=== PATIENT | male | born 1960 | race Caucasian/White ===

== ENCOUNTER 2020-12-25 10:49 | Observation (INO) | payer MEDICARE ==
[~2020-12-25] VITALS: Ht 180.3 cm; Wt 80.3 kg
--- NOTE | ~2020-12-25 | HEMODYNAMI ---
PATIENT:PACHECO MARADIAGA MEDICAL RECORD: [id number] : 62 LOCATION:[facility] D.2123 ADMISSION DATE: 12/25/20 Generatedon::43 Patient name: PACHECO MARADIAGA Patient #: [id number] SSN: [id number] : 1960 Date of study: 12/26/2020 Page: Of Hemodynamic Procedure Report Patient Data Patient Demographics Procedure consent was obtained First Name: PACHECO Gender: Male Last Name: ASHWINI : 1960 Patient #: [id number] Age: 60 year(s) Race: SSN: [id number] Additional ID: [id number] Contact details Address: [place] [address] State: [place] City: [place] Zip code: [address] Admission Admission Data Admission Date: 12/25/2020 Admission Time: 13:57 Arrival Date: 12/26/2020 Arrival Time: 0:00 Admit Source: Other Insurance Payor: Medicare Room #: D.2123 Height (in.): 70.87 BSA: 2 (m2) Height (cm.): 180 BMI: 24.69 (kg/m2) Weight (lbs.): 176.37 Weight (kg.): 80 Lab Results Lab Result Date: 12/26/2020 Lab Result Time: 0:00 Biochemistry Name Units Result Min Max BUN mg/dl 17 --(---*)-- 7 18 CK-MB ng/ml 0.8 --(*---)-- 0 3.6 Creatinine mg/dl 1.3 --(---*)-- 0.6 1.3 eGFR ml/min 60 *-(----)-- 90 120 NONAFRICAN Troponin l ng/ml 0.017 --(-*--)-- 0 0.06 CBC Name Units Result Min Max Hematocrit % 45.7 --(-*--)-- 42 54 Hemoglobin g/dl 15.9 --(--*-)-- 13.5 17.5 Procedure Procedure Types Cath Procedure Diagnostic Procedure C [facility] w/Coronaries Procedure Description Procedure Date Procedure Date: 12/26/2020 Procedure Start Time: 9:31 Procedure End Time: 9:39 Procedure Staff Name Function Rios Henry MD Performing Physician Maribeth Hammonds RT Monitor Tiffani Zhou RT Scrub Chaparro Merrill RN Nurse Procedure Data Cath Procedure Fluoroscopy Diagnostic fluoroscopy Total fluoroscopy Time: 1.2 time: 1.2 min min Diagnostic fluoroscopy Total fluoroscopy dose: 374 dose: 374 mGy mGy Contrast Material Contrast Material Type Amount (ml) Isovue 300 57 Entry Location Entry Primary Successful Side Size Upsize Upsize Entry Closure Shaver ccessful Closure Location (Fr) 1 (Fr) 2 (Fr) Remarks Device Remarks Radial Right 6 Fr Mechanical artery Short Compression Estimated blood loss: 5 ml Diagnostic catheters Device Type Used For End Catheter Placement DIAGNOSTIC Sebree 110cm 5 Multi-vessel Fr catheter ([id number]) Angiography Procedure Complications No complications Procedure Medications Medication Administration Route Dosage Oxygen etCO2 Nasal cannula 2 l/min Lidocaine 2% added to field 20 Heparin Flush Bag added to field 2 bags (1000units/500ml NS) 0.9% NaCl I.V. 100 ml/hr Radial Cocktail I.A. 1 syringe (Verapamil 2mg/Nitro 400mcg/Heparin 1500units) Hemodynamics Rest BSA: 2 (m2) HGB: 15.9 (g/dl) O2 Consumption: Estimated: 230.72 (ml/min) O2 Consu mption indexed: Estimated:115.36 (ml/min/m) Heart Rate: 64 (bpm) Pressure Samples Time Site Value (mmHg) Purpose Heart Use Rate(bpm) 9:35 LV 107/-1,2 Snapshot 70 Gradients Valve Time Site Site Mean SEP/DFP Peak To Heart Use 1 2 (mmHg) (sec/min) Peak Rate (mmHg) (bpm) Aortic 9:36 LV AO 83 Snapshots Pre Cath Intra NCS Post Cath Vital Signs Time Heart Resp SPO2 etCO2 NIBP (mmHg) Rhythm Pain Sedation Rate (ipm) (%) (mmHg) Status Level (bpm) 9:25:21 65 20 97 29.9 165/101(142) NSR 0 (11) 10(A) , No pain 9:29:42 66 21 97 31.4 164/97(128) NSR 0 (11) 10(A) , No pain 9:34:03 66 24 97 26.9 153/95(127) NSR 0 (11) 10(A) , No pain 9:38:19 76 24 94 23.2 126/85(100) NSR 0 (11) 10(A) , No pain Medications Time Medication Route Dose Verified Delivered Reason Notes Effectiveness by by 9:23:26 Oxygen etCO2 2 l/min Rios [place] used for Nasal [facility] Merrill RN procedure cannula 9:23:33 Lidocaine 2% added 20ml Rios [place] for local to vial [facility] anesthetic field MD CR[facility]ALL 9:23:38 Heparin Flush added 2 bags Rios [place] used for Bag to [facility] procedure (1000units/500ml field MD CRANDALL NS) 9:23:46 0.9% NaCl I.V. 100 Rios [place]field Per ml/hr [facility] Merrill RN physician 9:34:55 Radial Cocktail I.A. 1 Rios [place] for (Verapamil syringe [facility] vasodilation 2mg/Nitro MD CRANDALL 400mcg/Heparin 1500units) Procedure Log Time Note 8:42:54 Informed consent obtained and on chart 8:42:59 Diagnostic Cath Status : Urgent 8:44:05 Lab Result : BUN 17 mg/dl 8:44:05 Lab Result : eGFR NONAFRICAN 60 ml/min 8:44:05 Lab Result : Hemoglobin 15.9 g/dl 8:44:05 Lab Result : Troponin l 0.017 ng/ml 8:44:05 Lab Result : Creatinine 1.3 mg/dl 8:44:05 Lab Result : CK-MB 0.8 ng/ml 8:44:06 Lab Result : Hematocrit 45.7 % 8:44:44 Arrival Date: 12/26/2020 12:00:00 AM 8:44:47 Admit Source: Other 8:44:49 ACC Patient presents with Unstable Angina CCS Anginal Class 2--Slight limitation of ordinary activity. 8:44:52 Procedure Status Urgent Heart Cath (IP). 8:44:54 Time tracking: Regular hours (M-F 7:00 - 5:00) 8:45:00 Plan of Care:Hemodynamics will remain stable., Cardiac rhythm will remain stable., Comfort level will be maintained., Respiratory function will remain adequate., Patient/ family verbilizes understanding of procedure., Procedure tolerated without complication., Recovers from procedure without complications.. 8:51:16 Chaparro Merrill RN sent for patient. Start room use. 8:52:40 Patient Height : 70.87 inches 8:52:44 Patient Weight : 176.37 lbs 8:52:53 Insurance Payor : Medicare 9:07:32 2) 60-89 Mildly reduced kidney function, and other findings (as for stage 1) point to kidney disease. 9:07:36 Maximum allowable contrast dose (3.7 X eGFR X 0.75)167 ml. 9:09:08 Patient received from Med II to CCL 1 Alert and oriented. Tansferred to table in Supine position. 9:09:15 Warm blankets applied, and sanjiv hugger turned on for patient comfort. 9:09:16 Correct patient and procedure confirmed by team. 9:09:17 ECG and BP/O2 sat monitors applied to patient. 9:23:02 Vital chart was started 9:23:26 Oxygen 2 l/min etCO2 Nasal cannula was administered by Chaparro Merrill RN; used for procedure; Verbal order read back and verified. 9:23:33 Lidocaine 2% 20ml vial added to field was administered by iRos Henry MD; for local anesthetic; Verbal order read back and verified. 9:23:38 Heparin Flush Bag (1000units/500ml NS) 2 bags added to field was administered by Rios Henry MD; used for procedure; Verbal order read back and verified. 9:23:46 0.9% NaCl 100 ml/hr I.V. was administered by Chaparro Merrill RN; Per physician; Verbal order read back and verified. 9:24:13 Baseline sample Acquired. 9:24:17 Rhythm: sinus rhythm 9:24:20 Full Disclosure recording started 9:24:25 H&P Date Dictated: 12/26/2020 New H&P dictated by physician.. 9:24:27 Pre-procedure instructions explained to patient. 9:24:27 Pre-op teaching completed and patient verbalized understanding. 9:24:31 Family in patients room. 9:24:32 Patient NPO since Midnight. 9:24:35 Is the patient allergic to Iodine/contrast media? No. 9:24:36 Was the patient premedicated? Yes 9:24:37 Is patient on blood thinner?No 9:24:39 Patient diabetic? No. 9:24:43 Not using any sedation on pt, pt states that he has gone into cardiac arrest each time sedation medication has been given to him. 9:24:56 Previous problem with sedation/anesthesia? Yes cardiac arrest under general anesthesia 9:25:00 Snore? Yes 9:25:02 Sleep apnea? No 9:25:02 Deviated septum? No 9:25:03 Opens mouth fully? Yes 9:25:04 Sticks out tongue? Yes 9:25:11 Airway obstruction? Yes copd, asthma 9:25:16 Dentures? No ? 9:25:20 Pre procedure: right dorsailis pedis pulse 2+ Normal; easily identifiable; not easily obliterated 9:25:23 Pre procedure: left dorsailis pedis pulse 2+ Normal; easily identifiable; not easily obliterated 9:25:26 Modified Oumsane's test Radial < 7 seconds 9:25:28 Patient pain scale 0/10 ?. 9:25:35 IV patent on arrival in left forearm with 0.9% NaCl at O. 9:25:40 Lab results completed and on chart. 9:25:53 Right Radial & Right Groin area was prepped with chlora-prep and draped in sterile fashion 9:25:54 Alarms reviewed by R. N. 9:25:55 Sharps counted by scrub and verified by R.N. 9:25:58 Physician arrived 9:25:59 --------ALL STOP TIME OUT------ 9:26:00 Final Timeout: patient, procedure, and site verified with staff and physician. All members of the team are in agreement. 9:26:02 Right Radial & Right Groin site verified by team. 9:26:06 Fire Safety Assessment: A--An alcohol-based skin anteseptic being used preoperatively., C--Open oxygen or nitrous oxide is being used., D--An ESU, laser, or fiber-optic light is being used. 9:26:08 Physical assessment completed. ASA score P 2 - A patient with mild systemic disease as per Rios Henry MD. 9:26:16 Use device set Radial Dx or PCI 9:26:17 ACIST Syringe (58387) opened to sterile field. 9:26:17 Medline Cath Pack ([id number]) opened to sterile field. 9:26:17 Bag Decanter () opened to sterile field. 9:26:18 ACIST Hand Control (76965) opened to sterile field. 9:26:18 ACIST Manifold (50131) opened to sterile field. 9:26:19 Tegaderm 4 x 4 (1626W) opened to sterile field. 9:26:19 MBrace Wrist Support ([id number]) opened to sterile field. 9:26:20 NEEDLE Cook 21G 4cm Radial (F76365) opened to sterile field. 9:26:21 SHEATH 6FR RAIN (8497659) opened to sterile field. 9:26:22 EMERALD Guide Wire (891-788) opened to sterile field. 9:30:14 Procedure started. 9:31:47 Local anesthetic to right radial artery with Lidocaine 2% by Rios Henry MD.INITIAL ACCESS ONLY 9:32:53 A 6 Fr Short sheath was inserted into the Right Radial artery 9:34:35 Zero performed for pressure channel P1 9:34:43 Zero performed for pressure channel P1 9:34:50 Zero performed for pressure channel P1 9:34:55 Radial Cocktail (Verapamil 2mg/Nitro 400mcg/Heparin 1500units) 1 syringe I.A. was administered by Rios Henry MD; for vasodilation; Verbal order read back and verified. 9:35:04 A DIAGNOSTIC Sebree 110cm 5 Fr catheter (765908) was advanced over the wire and used for Multi-vessel Angiography. 9:35:44 LV hemodynamics recorded. 9:35:45 LV gram done using MO 9:35:47 Injector settings: Ml/sec: 5, Volume: 15, 9:35:58 EF : 55 % 9:36:02 LCA angiography performed. 9:36:04 Injector settings: Ml/sec: 3, Volume: 6, 9:37:39 RCA angiography performed. 9:37:42 Injector settings: Ml/sec: 3, Volume: 6, 9:38:04 Catheter removed. 9:38:08 ZEPHYR REGULAR TR BAND (945166) opened to sterile field. 9:38:17 Sheath removed intact; hemostasis achieved with Mechanical Compression to the Right Radial artery. 9:38:19 Procedure ended.(Physican Out) 9:38:30 Fluoroscopy time 01.20 minutes. 9:38:34 Fluoroscopy dose: 374 mGy 9:38:34 Flurop Dose total: 374 9:38:39 Dose Area Product 15365 mGy/cm. 9:39:03 Contrast amount:Isovue 300 57ml. 9:39:05 Maximum allowable dose exceeded? No. 9:39:06 Sharps counted by scrub and verified by R.N. 9:39:08 [place] band inflated with 12cc of air. 9:39:10 Insertion/operative site no bleeding no hematoma. 9:39:15 Post right radial artery:stable 9:39:17 Post Procedure Pulses reassessed and unchanged 9:39:20 Post procedure rhythm: unchanged. 9:39:23 Estimated blood loss: 5 ml 9:39:25 Post procedure instruction explained to patient.Patient verbalizes understanding. 9:39:25 Patient needs reinforcement of post procedure teaching. 9:39:35 Procedure and supply charges have been captured, reviewed, submitted and are correct. 9:39:40 Procedure Complication : No complications 9:39:42 Vital chart was stopped 9:39:44 [facility] Findings: mild to moderate CAD (<70%) 9:39:45 Operative report dictated upon procedure completion. 9:39:45 See physician's report for complete and final results. 9:39:47 Report given to [facility]. 9:39:50 Patient transfered to [facility] with Stretcher. 9:39:53 Procedure ended. 9:39:53 Full Disclosure recording stopped 9:39:58 End room use (Document Last) Device Usage Item Name Manufacture Quantity Catalog Hospital Part Current Minima l Lot# / Number Charge Number Stock Stock Serial# Code ACIST Acist 1 34142 198340 646668 [id number] 20 Syringe Medical (89132) Systems Inc Medline Medline 1 [id number] 630629 17727 115715 5 Cath Pack ([id number]) Bag Microtek 1 184831 30974 120079 5 Decanter Medical Inc. () ACIST Hand Acist 1 40401 837562 664609 565279 5 Control Medical (25669) Systems Inc ACIST Acist 1 96927 476530 347839 313444 5 Manifold Medical (11659) Systems Inc Tegaderm 4 3M 1 1626W 349158 568805 154605 5 x 4 (1626W) MBrace Advanced 1 140-0250-00 496693 23912 890256 5 Wrist Vascular Support Dynamics ([id number]) NEEDLE Cook Cook Medical 1 [id number] 853388 900232 643059 5 21G 4cm Radial (F21063) SHEATH 6FR Cardinal 1 7756920 267279 7781304 224084 5 [facility] Health (6215395) EMERALD Cardinal 1 638-860 021038 135989 887113 5 Guide Wire Health (980-066) DIAGNOSTIC Terumo 1 36-4358 432736 690894 256781 5 Sebree 110cm 5 Fr catheter (383370) ZEPHYR Cardinal 1 300163 467198 0027377 445758 5 REGULAR TR Health BAND (996139) Signature Audit Jasper Stage Time Signature Unsigned Intra-Procedure 12/26/2020 Maribeth Hammonds 9:42:59 AM RT(R) Intra-Procedure 12/26/2020 Chaparro Merrill RN 9:43:17 AM Intra-Procedure 12/26/2020 Rios De Paz 9:43:30 AM Alphonse CR[facility] [address] [place] [address]
--- NOTE | ~2020-12-25 | OP ---
PATIENT NAME: PACHECO MARADIAGA MEDICAL RECORD: [id number] :62 LOCATION:D. D.3 ADMISSION DATE:12/25/20 SURGEON: JINA GALLOWAY MD DATE OF OPERATION: 12/26/2020 PROCEDURE: Left heart catheterization, selective coronary angiography, right radial approach. CATHETERS: Radial sheath. Andrews catheter. The procedure was well tolerated. The patient was returned to the [place]. Sheath removed. TR band was placed. FINDINGS: Left ventriculography in 30-degree MO view: Normal wall motion and normal systolic function. CORONARY ANATOMY: Left main: Left main is free of disease. LAD: Free of disease. There is some early atherosclerotic disease in the diagonal branch. Circumflex: Circumflex is small/circumflex is free of disease. Right coronary artery: Dominant, free of disease. IMPRESSION: 1. Minimal early atherosclerotic disease. 2. Left ventricular function remains normal. TRANSINT:[id number] Voice Confirmation ID: [id number] DOCUMENT ID: [id number] JINA GALLOWAY MD CC: [id number] DICTATION DATE: 12/26/2046 EMBOSSING PRESS OPERATOR APPRENTICE: 12/26/201937 DIS IN 12/26/20 [facility] [address] [id number]
[2020-12-25 11:10] LABS: BASOPHILS 0.3 % (0-2); EOSINOPHILS 1.2 % (0-7); IMMATURE GRANULOCYTES 0.2 % (0-5); LYMPHOCYTE ABS# 1.83 10x3/uL (1.32-3.57); LYMPHOCYTES 28.3 % (15-50); MCH 33.6 pg (26.0-34.0); MCHC 35.7 g/dL (31.0-37.0); MCV 94.2 fL (80.0-100.0); MEAN PLATELET VOLUME 9.3 fL (7.4-10.4); NEUTROPHIL ABS# 4.08 10x3/uL (1.78-5.38); PLATELET COUNT 174 10x3/uL (130-400); RBC 4.46 10x6/uL (4.20-6.10); RDW 14.3 % (11.5-14.5); WBC 6.5 10x3/uL (4.8-10.8)
[2020-12-25 11:15] VITALS: BP 173/116
[2020-12-25 11:21] LABS: APTT 23.9 SECONDS (22.8-39.4); INR 1.04 (0.85-1.17); PROTIME 12.6 SECONDS (11.6-15.0)
[2020-12-25 11:27] LABS: CALC OSMOLALITY 279 mosm/kg (275-300); CALCIUM 8.7 mg/dL (8.5-10.1); CARBON DIOXIDE 26.4 mmol/L (21.0-32.0); CHLORIDE - SERUM 104 mmol/L (98-107); GLUCOSE 89 mg/dL (74-106); POTASSIUM - SERUM 3.6 mmol/L (3.5-5.1); SODIUM 141 mmol/L (136-145); UREA NITROGEN 13 mg/dL (7-18); eGFR NON AFRICAN AMERICAN 81 mL/min (90-120)
[2020-12-25 12:00] LABS: ALBUMIN 3.6 g/dL (3.4-5.0); ALKALINE PHOSPHATASE 56 U/L (30-120); ALT (SGPT) 21 U/L (10-68); BILIRUBIN - TOTAL 0.31 mg/dL (0.2-1.3); CKMB 1.1 U/L (0.0-3.6); CREATINE KINASE 114 UL (21-232); MAGNESIUM - SERUM 1.9 mg/dL (1.8-2.4); PROTEIN - SERUM 7.2 g/dL (6.4-8.2); TROPONIN-I < 0.017 ng/mL (0.000-0.060)
[2020-12-25 13:45] LABS: CKMB 1.1 U/L (0.0-3.6); CREATINE KINASE 109 UL (21-232); TROPONIN-I < 0.017 ng/mL (0.000-0.060)
[2020-12-25 13:50] VITALS: BP 146/96
[2020-12-25] MEDS ORDERED: VIBRAMYCIN 100100 MG PO (15:04)
[2020-12-25] MEDS ORDERED: RANEXA1000 MG PO (15:05)
[2020-12-25] MEDS ORDERED: COREG 3.1253.125 MG PO (15:06)
[2020-12-25] MEDS ORDERED: BENICAR40 MG PO (15:07)
[2020-12-25] MEDS ORDERED: PROTONIX40 MG PO (15:07)
[2020-12-25] MEDS ORDERED: CLARITIN 10 MG10 MG PO (15:09)
[2020-12-25] MEDS ORDERED: LIPITOR40 MG PO (15:10)
[2020-12-25] MEDS ORDERED: NITROQUICK0.4 MG SL (15:11)
[2020-12-25] MEDS ORDERED: PROAIR HFA8.5 G1 INH (15:15)
--- NOTE | 2020-12-25 15:35 | NUR ---
PT RECEIVED FROM ER. ALERT AND ORIENTED. TELEMETRY PLACED. HOME MEDS UPDATED. BP ELEVATED BUT LESS THAN FROM ER. PT KEEPING WALLET, PHONE, AND GLASSES IN ROOM.
[2020-12-25 15:42] VITALS: BP 164/107; BMI 26.4
[2020-12-25 16:05] VITALS: BP 164/107
[2020-12-25 17:41] LABS: BASOPHILS 1.1 % (0-2); EOSINOPHILS 6.5 % (0-7); HEMATOCRIT 37.6 % (42.0-54.0); HEMOGLOBIN 11.8 g/dL (13.5-17.5); IMMATURE GRANULOCYTES 0.5 % (0-5); LYMPHOCYTE ABS# 1.53 10x3/uL (1.32-3.57); MCH 30.3 pg (26.0-34.0); MCHC 31.4 g/dL (31.0-37.0); MCV 96.7 fL (80.0-100.0); MEAN PLATELET VOLUME 9.2 fL (7.4-10.4); NEUTROPHILS 59.9 % (40-80); PLATELET COUNT 298 10x3/uL (130-400); RBC 3.89 10x6/uL (4.20-6.10); RDW 13.8 % (11.5-14.5); WBC 6.7 10x3/uL (4.8-10.8)
[2020-12-25 18:36] LABS: ANION GAP 23.7 mmol/L (8-16); CALCIUM 10.6 mg/dL (8.5-10.1); CARBON DIOXIDE 23.4 mmol/L (21.0-32.0); CHOL - HDL RATIO 2.8 ratio (2.3-4.9); CREATININE - SERUM 11.7 mg/dL (0.6-1.3); LDL-HDL RATIO 1.1 ratio (1.5-3.5); POTASSIUM - SERUM 5.1 mmol/L (3.5-5.1)
--- NOTE | 2020-12-25 19:19 | NUR ---
INITIAL ROUNDS COMPLETED. PT RESTING WITH EYES CLOSED. RESP EVEN AND REGULAR. CALL LIGHT WITHIN REACH.
[2020-12-25 20:00] VITALS: BP 148/82
[2020-12-25 20:16] LABS: % SATURATION 40 % (15-55); IRON 117 ug/dl (35-150); TOTAL IRON BIND CAPACITY 286 ug/dl (260-445); UNSAT IRON BIND CAPACITY 169 ug/dl (150-375)
[2020-12-25 20:44] LABS: CREATININE - SERUM 1.1 mg/dL (0.6-1.3)
--- NOTE | 2020-12-25 22:32 | NUR ---
BUN AND CR DRAWN AT 1725 HRS SIGNIFICANTLY HIGHER THAN 1100 LABS. REDRAW REQUESTED. Hannah KAPOOR APRN NOTIFIED OF DRASTIC INCREASE OF CR AT 1955 AND INFORMED OF REDRAW. ASSESSMENT COMPLETED AT 1950 HRS. VSS. SR PER CM HR 78. ALERT ND ORIENTED TO PERSON, PLACE AND TIME. LAZO. PALPABLE PERIPHERAL PULSES. IV TO LAC SL. PM MEDS GIVEN. PT CURRENTLY RESTING WITH EYES CLOSED. RESP EVEN AND REGULAR. SR UP X1, CALL LIGHT WITHIN REACH.
--- NOTE | 2020-12-25 23:37 | NUR ---
VSS. PT DENIES ANY DISCOMFORT. EKG DONE. CALL LIGHT WITHIN REACH.
[2020-12-26] VITALS: BP 142/94
[2020-12-26 01:48] LABS: CKMB 0.6 U/L (0.0-3.6); CREATINE KINASE 87 UL (21-232); TROPONIN-I < 0.017 ng/mL (0.000-0.060)
--- NOTE | 2020-12-26 02:00 | NUR ---
PT RESTING WITH EYES CLOSED. RESP EVEN AND REGULAR. CALL LIGHT WITHIN REACH.
[2020-12-26 04:00] VITALS: BP 136/84
--- NOTE | 2020-12-26 04:06 | NUR ---
VSS. PT DENIES ANY DISCOMFORT. CALL LIGHT WITHIN REACH.
--- NOTE | 2020-12-26 05:45 | NUR ---
L GROIN CLIPPED FOR AM LHC. EKG DONE. EXPLAINED HIBICLENS BATH TO PT. PT STATED UNDERSTANDING.
[2020-12-26 06:31] LABS: BASOPHILS 0.2 % (0-2); EOSINOPHILS 1.6 % (0-7); IMMATURE GRANULOCYTES 0.3 % (0-5); LYMPHOCYTE ABS# 2.16 10x3/uL (1.32-3.57); LYMPHOCYTES 34.5 % (15-50); MCH 32.8 pg (26.0-34.0); MCHC 34.8 g/dL (31.0-37.0); MEAN PLATELET VOLUME 9.9 fL (7.4-10.4); MONOCYTES 8.9 % (2-11); NEUTROPHIL ABS# 3.41 10x3/uL (1.78-5.38); NEUTROPHILS 54.5 % (40-80); RDW 14.5 % (11.5-14.5); WBC 6.3 10x3/uL (4.8-10.8)
--- NOTE | 2020-12-26 06:32 | NUR ---
HOBOCLENS SHOWER DONE.
[2020-12-26 06:38] LABS: HEMATOCRIT 45.7 % (42.0-54.0); HEMOGLOBIN 15.9 g/dL (13.5-17.5); MCV 94.2 fL (80.0-100.0); PLATELET COUNT 216 10x3/uL (130-400); RBC 4.85 10x6/uL (4.20-6.10)
[2020-12-26 06:54] LABS: ALBUMIN 3.8 g/dL (3.4-5.0); ALKALINE PHOSPHATASE 64 U/L (30-120); ALT (SGPT) 20 U/L (10-68); BILIRUBIN - TOTAL 0.64 mg/dL (0.2-1.3); CALC OSMOLALITY 278 mosm/kg (275-300); CALCIUM 9.1 mg/dL (8.5-10.1); CARBON DIOXIDE 25.9 mmol/L (21.0-32.0); CHLORIDE - SERUM 102 mmol/L (98-107); CKMB 0.8 U/L (0.0-3.6); CREATINE KINASE 90 UL (21-232); CREATININE - SERUM 1.3 mg/dL (0.6-1.3); GLUCOSE 108 mg/dL (74-106); MAGNESIUM - SERUM 1.7 mg/dL (1.8-2.4); POTASSIUM - SERUM 3.8 mmol/L (3.5-5.1); SODIUM 138 mmol/L (136-145); TROPONIN-I < 0.017 ng/mL (0.000-0.060); UREA NITROGEN 17 mg/dL (7-18); eGFR NON AFRICAN AMERICAN 60 mL/min (90-120)
--- NOTE | 2020-12-26 07:00 | NUR ---
RECEIVED REPORT. ASSUMED CARE OF PATIENT. PATIENT RESTING IN BED WITH EYES OPEN, RESP EVEN AND UNLABORED. PATIENT FOR HEART CATH THIS AM. NPO SINCE MN. WHITE BOARD UPDATED, BEDSIDE SHIFT REPORT COMPLETE. DENIES NEEDS. DENIES CHEST PAIN. CALL LIGHT WITHIN REACH.
[2020-12-26 08:44] VITALS: BP 141/97
--- NOTE | 2020-12-26 09:05 | NUR ---
PATIENT LEFT FOR CUSHION FILLER AT THIS TIME. PREOP MEDS AND FLUIDS GIVEN TO BUFFY FOR ADMINISTRATION IN CUSHION FILLER. PATIENT IN NO DISTRESS, LEFT UNIT [place] BED IN STABLE CONDITION.
--- NOTE | 2020-12-26 09:45 | NUR ---
RECEIVED REPORT FROM GREASER AND OILER, NO INTERVENTION. TR BAND TO RIGHT RADIAL. PT BACK TO UNIT SOON.
--- NOTE | 2020-12-26 10:06 | NUR ---
PATIENT RETURNED TO UNIT AT THIS TIME VIA BED. NO DISTRESS. TR BAND TO RIGHT WRIST. BP 117/73, 66 PULSE. ALERT/ORIENTED. NO SEDATION RECEIVED IN CRANE MAN. CALL LIGHT WITHIN REACH. NO DISTRESS.
--- NOTE | 2020-12-26 11:09 | NUR ---
5CC RELEASED FROM RIGHT RADIAL TR BAND. NO BLEEDING NOTED FROM SITE. 5CC REMAIN AT THIS TIME.
[2020-12-26 11:27] VITALS: BP 135/90
--- NOTE | 2020-12-26 11:31 | NUR ---
TR BAND TO RIGHT RADIAL RELEASED AT THIS TIME. NO BLEEDING FROM SITE. 2X2 GAUZE APPLIED AND SECURED WITH CLEAR TEGADERM. PERIPHERAL PULSES PATENT. PATIENT ALERT/AWAKE WITH FEMALE VISITOR AT BEDSIDE. CALL LIGHT WITHIN REACH. NO DISTRESS.
--- NOTE | 2020-12-26 12:54 | NUR ---
SCDs APPLIED TO BILATERAL LOWER EXTREMITIES AT THIS TIME.
[2020-12-26 13:54] VITALS: Ht 180.3 cm; Wt 80.3 kg
--- NOTE | 2020-12-26 14:30 | NUR ---
TELEMETRY REMOVED AND RETURNED TO ICU WAREHOUSE DRIVER. 18 GAUGE IV REMOVED FROM LEFT AC. CATHETER TIP INTACT. NO BLEEDING FROM SITE. 2X2 GAUZE APPLIED AND SECURED WITH BANDAID. TOLERATED IV REMOVAL WELL. PATIENT IS BEING DISCHARGED TO HOME. FAMILY HERE TO PICK PATIENT UP SOON.
--- NOTE | 2020-12-26 16:30 | NUR ---
PATIENT LEFT UNIT VIA WHEELCHAIR IN STABLE CONDITION WITH ALL PERSONAL BELONGINGS. PATIENT DISCHARGED TO HOME WITH HIS COUSIN. PATIENT THANKED THIS NURSE FOR ALL CARES RENDERED.
== END 2020-12-26 16:30 | disposition home or self-care (01) ==
LOC: D.ER 10:49 → D.M2 13:02 → OBSVTIME 13:02 → D.M2 13:57
PROVIDERS: Family Medicine; Internal Medicine Cardiovascular Disease; ADMIT Family Medicine; ATTEND Family Medicine
DX: I25.110 Atherosclerotic heart disease of native coronary artery with unstable angina pectoris (principal); R55 Syncope and collapse; F17.203 Nicotine dependence unspecified, with withdrawal; D64.9 Anemia, unspecified; I10 Essential (primary) hypertension; J44.9 Chronic obstructive pulmonary disease, unspecified; M19.90 Unspecified osteoarthritis, unspecified site; G89.29 Other chronic pain; Z85.46 Personal history of malignant neoplasm of prostate; Z85.118 Personal history of other malignant neoplasm of bronchus and lung

== ENCOUNTER 2021-02-28 08:11 | Emergency (ER) | payer MEDICARE ==
[~2021-02-28] VITALS: Ht 180.3 cm; Wt 85.5 kg
[~2021-02-28 08:11] MED LIST: BENICAR40 MG PO; CLARITIN 10 MG10 MG PO; COREG 3.1253.125 MG PO; LIPITOR40 MG PO; NITROQUICK0.4 MG SL; PROAIR HFA8.5 G1 INH; PROTONIX40 MG PO; RANEXA1000 MG PO; VIBRAMYCIN 100100 MG PO
[2021-02-28 08:15] VITALS: Ht 180.3 cm; Wt 85.5 kg
[2021-02-28 08:50] VITALS: BP 152/104
[2021-02-28 08:55] LABS: BASOPHILS 0.7 % (0-2); EOSINOPHILS 2.3 % (0-7); HEMATOCRIT 42.6 % (42.0-54.0); HEMOGLOBIN 14.7 g/dL (13.5-17.5); LYMPHOCYTES 20.3 % (15-50); MCH 34.3 pg (26.0-34.0); MCHC 34.5 g/dL (31.0-37.0); MCV 99.3 fL (80.0-100.0); MEAN PLATELET VOLUME 7.3 fL (7.4-10.4); MONOCYTES 8.6 % (2-11); NEUTROPHILS 68.1 % (40-80); RBC 4.29 10x6/uL (4.20-6.10); RDW 16.5 % (11.5-14.5); WBC 5.8 10x3/uL (4.8-10.8)
[2021-02-28 08:59] LABS: PLATELET COUNT 163 10x3/uL (130-400)
[2021-02-28 09:03] LABS: CALC OSMOLALITY 281 mosm/kg (275-300); CALCIUM 8.2 mg/dL (8.5-10.1); CARBON DIOXIDE 24.9 mmol/L (21.0-32.0); CHLORIDE - SERUM 105 mmol/L (98-107); GLUCOSE 102 mg/dL (74-106); POTASSIUM - SERUM 4.4 mmol/L (3.5-5.1); SODIUM 140 mmol/L (136-145); UREA NITROGEN 22 mg/dL (7-18); eGFR NON AFRICAN AMERICAN 81 mL/min (90-120)
[2021-02-28 09:07] LABS: APTT 25.1 SECONDS (22.8-39.4); INR 1.08 (0.85-1.17); PROTIME 12.9 SECONDS (11.6-15.0)
[2021-02-28 09:09] LABS: ALBUMIN 3.7 g/dL (3.4-5.0); ALKALINE PHOSPHATASE 63 U/L (30-120); ALT (SGPT) 31 U/L (10-68); BILIRUBIN - TOTAL 0.63 mg/dL (0.2-1.3); PROTEIN - SERUM 7.8 g/dL (6.4-8.2)
== END 2021-02-28 11:15 | disposition home or self-care (01) ==
LOC: D.ER 08:11
PROVIDERS: Emergency Medicine
DX: K92.2 Gastrointestinal hemorrhage, unspecified (principal); R55 Syncope and collapse; I10 Essential (primary) hypertension; J44.9 Chronic obstructive pulmonary disease, unspecified; Z72.0 Tobacco use